=== PATIENT | male | born 1990 | race American Indian/Alaskan Native ===

== ENCOUNTER 2016-12-16 08:22 | Emergency (ER) | payer SELFPAY ==
[2016-12-16 08:58] VITALS: BP 137/92
[2016-12-16] MEDS ORDERED: XYLOCAINE 1% MPF 5 mL INFILTRATI ONE (11:04)
[2016-12-16] MEDS ORDERED: FLAGYL PO ONE (11:04)
[2016-12-16] MEDS ORDERED: ZITHROMAX PO ONE (11:04)
[2016-12-16] MEDS ORDERED: ROCEPHIN IM ONE (11:04)
--- NOTE | 2016-12-16 11:11 | Emergency Department Report ---
ED Male HPI - General Chief complaint: Urogenital-Male Stated complaint: BLEEDING/PENIS/PAIN Source: patient Mode of arrival: Ambulatory Limitations: No Limitations - History of Present Illness Initial comments: 26-year-old -[place] male with no past medical history comes in for complaint of shaft of penis hurting times a few days and pains of tingling burning to the tip of his penis times a few days complains of penile discharge with hematuria. Patient denies any fever or chills or nausea no vomiting abdominal pain. He denies any lesions to the shaft of the penis. He does admit to unprotected intercourse. MD Complaint: penile discharge, dysuria -: days(s) (3) Severity scale (0 -10): 8 Quality: burning, other (tingling) - Related Data Previous Rx's Medication Instructions Recorded Last Taken Type Doxycycline [Vibramycin CAP] 100 mg PO Q12HR #14 capsule 12/16/16 Unknown Rx Allergies Allergy/AdvReac Type Severity Reaction Status Date / Time No Known Allergies Allergy Verified 12/16/16 08:54 ED Review of Systems ROS: Stated complaint: BLEEDING/PENIS/PAIN Other details as noted in HPI ED Past Medical Hx - Past Medical History Previous Medical History?: No - Surgical History Past Surgical History?: No - Social History Smoking Status: Current Every Day Smoker Substance Use Type: None - Medications Home Medications: Home Medications Medication Instructions Recorded Confirmed Last Taken Type Doxycycline [Vibramycin CAP] 100 mg PO Q12HR #14 capsule 12/16/16 Unknown Rx ED Physical Exam - General Limitations: No Limitations General appearance: alert - Head Head exam: Present: atraumatic - Eye Eye exam: Present: normal appearance - ENT ENT exam: Present: normal exam, mucous membranes moist - Neck Neck exam: Present: normal inspection - exam: Present: urethral discharge, circumcision. Absent: testicular tenderness, scrotal swelling - Extremities Exam Extremities exam: Present: normal inspection, full ROM ED Course Vital Signs 12/16/16 08:55 Temperature 98.3 F Pulse Rate 50 L Respiratory 16 Rate Blood Pressure 137/92 O2 Sat by Pulse 98 Oximetry ED Medical Decision Making - Medical Decision Making Patient's been evaluated by this provider fast track. Will treat patient for gonorrhea Chlamydia and Trichomonas. Discussed patient that he needs to use protection such as condoms. Standard monogamous relationship. Patient verbalized understanding. Critical care attestation.: If time is entered above; I have spent that time in minutes in the direct care of this critically ill patient, excluding procedure time. ED Disposition Clinical Impression: STD exposure, Urethritis Disposition: DISCHARGED TO HOME OR SELFCARE Is pt being admited?: No Does the pt Need Aspirin: No Condition: Stable Instructions: Sexually Transmitted Diseases (ED), Safe Sex (ED) Additional Instructions: Please use condoms. Follow-up with the health department. He can call back here in 3-7 days for results of testing. Prescriptions: Doxycycline [Vibramycin CAP] 100 mg PO Q12HR #14 capsule Referrals: PRIMARY CARE, [Primary Care Provider] - 3-5 Days Forms: STI Treatment and Prevention, Work/School Release Form(ED)
[2016-12-16 12:01] LABS: Bilirubin,Urine NEG (Negative); Blood,Urine MOD (Negative); Ketones,Urine NEG (Negative); Leukocyte Esterase,Urine LG (Negative); Mucus,Urine FEW /HPF; Nitrite,Urine NEG (Negative); Protein,Urine <15 mg/dL mg/dL (Negative); Urobilinogen,Urine < 2.0 mg/dL (<2.0)
[2016-12-16 12:05] LABS: WBC,Urine > 182.0 /HPF (0.0-6.0)
== END 2016-12-16 11:31 | disposition home or self-care (01) ==
LOC: ED 08:22
DX: N34.2 Other urethritis (principal); F17.200 Nicotine dependence, unspecified, uncomplicated; Z20.2 Contact with and (suspected) exposure to infections with a predominantly sexual mode of transmission
CPT/HCPCS: 81001; 87591; 96372; 99283; J0696